=== PATIENT | male | born 1955 | race Caucasian/White ===

== ENCOUNTER → 2022-01-14 | Outpatient (CLI) | payer BC | LOC: EMI 14:15 | DX: M47.26 Other spondylosis with radiculopathy, lumbar region (principal); M51.37 Other intervertebral disc degeneration, lumbosacral region; M25.78 Osteophyte, vertebrae; M48.061 Spinal stenosis, lumbar region without neurogenic claudication; M48.07 Spinal stenosis, lumbosacral region; M47.817 Spondylosis without myelopathy or radiculopathy, lumbosacral region; M51.35 Other intervertebral disc degeneration, thoracolumbar region; M43.16 Spondylolisthesis, lumbar region | CPT/HCPCS: 72148 ==